=== PATIENT | male | born 1950 | race Caucasian/White ===

== ENCOUNTER → 2017-10-19 | Outpatient (CLI) | payer OTHER ==
[~2017-10-19] VITALS: Ht 177.8 cm; Wt 79.4 kg
[~2017-10-19] MED LIST: ASA81BEC PO; ASPIRIN EC81 M1 PO; ASTELIN30 ML; CARISOPRODOL 3350 MG PO; CROMOLYN SODIUM10 ML OPHTHALMIC; DIAZEPAM 2MG TAB2 MG PO; DYMISTA NASAL S23 GM NS; FLEXERIL PO; HYDROCODON-ACE1 EAC5; HYDROXYZINE HCL10 M1 PO; KRILL OIL 3001 EACH PO; LIORESAL 10 MG10 MG PO; LISINOPRIL10 MG PO; LIVALO2 MG; LOPRESSOR25 PO; NAPROSYN500 MG PO; NEXIUM20 MG PO; NORCO 10-325 T1 EACH PO; NORVASC 5 MG TAB5 MG PO; OXYCONTIN10 M1 PO; PERCOCET 5-3251 EACH PO; PERCOCET PO; PRILOSEC40 MG; SANCTURA XR60 M1 PO; SINGULAIR 10 MG10 M1 PO; TOPROL XL25 MG PO; VALIUM5 MG PO; VICODIN; XYZAL5 MG PO; ZEGERID 20 MG1 EACH PO
[2017-10-19 14:28] VITALS: BP 154/98
== END ==
LOC: MRI 12:25
DX: M47.817 Spondylosis without myelopathy or radiculopathy, lumbosacral region (principal); M51.36 Other intervertebral disc degeneration, lumbar region; M48.061 Spinal stenosis, lumbar region without neurogenic claudication; M25.552 Pain in left hip; Z98.890 Other specified postprocedural states; Z96.642 Presence of left artificial hip joint
CPT/HCPCS: 62110; 62900